=== PATIENT | female | born 1965 | race African-American/Black ===

== ENCOUNTER → 2017-04-26 | Outpatient (CLI) | payer OTHER ==
--- NOTE | ~2017-04-26 | MR113 ---
[facility] A Service of [facility] & [facility] [place] RADIOLOGY TEXT RESULTS PATIENT: ARTHUR WHITTINGTON LOCATION: [facility] : 63 UNIT #: [id number] AGE: [address]: Jodi Hanson MD SEX: F ORDER DR: [id number] [place] [id number] O MR#: [id number] Acc #: [id number] NAME: ARTHUR WHITTINGTON : 1965 SEX: F STUDY DATE/TIME: 04/26/2017 13:11 UNIT: [facility] ROOM: STUDY DESCRIPTION: MR Lumbar Wo Contrast Attending Physician: Jodi Hanson M.D. Referring Physician: Jodi Hanson M.D. Ordering Physician: Jodi Hanson M.D. Primary Care Physician: Jodi Hanson M.D. MRI CENTER REPORT This report is preliminary unless electronic signature is present. EXAM Lumbar spine MRI without contrast, 04/26/2017 COMPARISON None CLINICAL HISTORY Worsening low back pain with right radiculopathy for 9 months. FINDINGS Spine alignment is normal and bone marrow signal is normal. The distal cord and conus are normal in position and appearance and the paraspinous soft tissues are normal. At L1-2, the disc, canal and foramina are normal. At L2-3, there is a slight disc bulge and a left posterolateral disc protrusion. There is modest facet arthropathy as well. There is no canal stenosis. The right foramen is normal. There is mild left far lateral foraminal narrowing. At L3-4, there is a slight disc bulge and facet arthropathy and borderline canal narrowing, and mild left and borderline right foraminal narrowing. At L4-5, there is a disc bulge and facet arthropathy and borderline canal stenosis, and borderline to mild right and mild left foraminal stenosis. At 5-1, there is no canal stenosis. There is a slight disc bulge and there is right greater than left facet arthropathy. There is borderline right and no left foraminal narrowing. IMPRESSION Modest lower lumbar degenerative change. See details above. No STS. [facility] A Service of [facility] & [facility] [place] RADIOLOGY TEXT RESULTS PATIENT: ARTHUR WHITTINGTON LOCATION: [facility] : 63 UNIT #: [id number] AGE: [address]: Jodi Hanson MD SEX: F ORDER DR: acute-appearing abnormality at any level. Dictated by... Felix Hartley M.D. THIS IS AN ELECTRONICALLY VERIFIED REPORT Felix Hartley M.D. at 04/29/2017 2:17 PM GOLDEN/uzma TD: 04/27/2017 11:44 JOB #: [id number] MRI CENTER REPORT Page 1 of 1
== END | disposition home or self-care (01) ==
LOC: CMRI 04-21 13:00 → SMRI 04-21 13:00
DX: M51.36 Other intervertebral disc degeneration, lumbar region (principal); G83.4 Cauda equina syndrome; M54.16 Radiculopathy, lumbar region; M47.896 Other spondylosis, lumbar region
CPT/HCPCS: 72148